=== PATIENT | male | born 1985 | race Caucasian/White ===

== ENCOUNTER 2017-01-27 21:13 | Emergency (ER) | payer OTHER ==
[~2017-01-27] VITALS: Ht 175.3 cm; Wt 113.6 kg
[2017-01-27 21:20] VITALS: BP 130/91; PULSE 73; RESP 16; O2SAT 98
--- NOTE | 2017-01-27 22:00 | DRSVH ---
PROCEDURE: X-RAY FINGERS, TWO VIEWS INDICATIONS: smashed finger TECHNIQUE: AP hand, 2 views of the right finger(s) acquired. COMPARISON: None. FINDINGS: Bones: Cortical fracture of the distal tuft of the middle finger Soft tissues: No suspicious soft tissue calcifications. IMPRESSION: Middle finger distal tuft cortical fracture Dictated by: Gary Manley M.D. on 01/27/2017 at 21:57 Approved by: Gary Manley M.D. on 01/27/2017 at 21:58
[2017-01-27] MEDS ORDERED: CEPH-512 PO (22:18)
[2017-01-27] MEDS ORDERED: IBUP-1827 PO (22:19)
--- NOTE | 2017-01-27 22:20 | ED.REPORT ---
HPI-Extremity Problem Upper Date of Service January 27, 2017 ED Provider: Osmar Huizar MD A 31 year old male no pertinent medical history presents to the ED complaining of right third finger pain. The pt crushed his finger several days ago, resulting in a laceration at the tip of the finger. He has been cleaning the area with hydrogen peroxide but became concerned today when he noticed that the wound was draining fluid. Nursing Notes Stated Complaint: R/FINGER LACERATION Chief Complaint: Extremity Trauma Nursing Notes Reviewed: Yes Allergies: Coded Allergies: No Known Allergies (Unverified , 01/27/17) Scheduled Cephalexin (Keflex) 500 Mg Capsule 500 MG PO QID Scheduled PRN Ibuprofen (Ibuprofen) 600 Mg Tablet 600 MG PO QID PRN PRN For Pain General Time Seen by MD: 22:06 Chief Complaint Finger injury right 3 Hx Obtained From: Patient Arrived By: Walk-in Symptom Duration: Since onset Recent Healthcare: No recent doctor visit, No recent hospitalization Similar Sx Previous: No Past Medical History Past Medical History none reported Past Surgical History none reported Smoking History Unknown if Ever Smoker Ambulatory Status Independent Review of Systems Musculoskeletal: Reports: Extremity pain (right third finger) Skin: Denies Rash Complete sys rev & neg: except as marked. Respiratory: Denies: Non-productive cough, Shortness of breath Cardiovascular: Denies: Chest pain GI: Denies: Abdominal pain Physical Exam Initial Vital Signs Vital Signs (First) Date Time Temp Pulse Resp B/P Pulse Ox O2 Delivery O2 Flow Rate FiO2 01/27/17 21:20 37.2 73 16 130/91 98 Room Air Initial VS: Reviewed General/Constitutional: Awake, Alert Neck: Atraumatic, Supple, Full range of motion Respiratory / Chest: Atraumatic, No respiratory distress Cardiovascular: Heart rate NL Upper Extremity / MS: Full range of motion Wrist / Hand: Neurologic intact, Vascular intact linear split in the pad of the right third finger, delayed presentation local infection and drainage bruising of the nail, seems to be draining Skin: Warm, Dry Neurologic: Oriented X3, Speech NL, No motor deficits, No sensory deficits Head / Eyes: Atraumatic, Normocephalic, PERRL, EOMI ENT: Atraumatic, Airway patent, Mucous membranes moist Abdomen: Atraumatic Back: Atraumatic, Full range of motion Lower Extremity / Pelvis / MS: Atraumatic, Full range of motion Psychiatric: Affect NL, Mood NL Interpretation & Diagnostics Interpretation & Diagnostics: Finger X-Ray, Right: IMPRESSION: Middle finger distal tuft cortical fracture Dictated by: Gary Manley M.D. on 01/27/2017 at 21:57 Approved by: Gary Manley M.D. on 01/27/2017 at 21:58 Re-Eval/Medical Decision Med Decision/Clinical Course 31-year-old with delayed presentation with a crush laceration and tuft fracture. Dressing and stack splint ordered, but patient departed the department before that could be applied. Declined prescribed antibiotics and left. Source of Hx: Old records Re-Evaluation/Progress : Time of Eval: 22:11 Patient Status: Condition improved Re-Evaluation/Progress Note: Pt rechecked, who is comfortable. Radiology results, diagnosis and plan for discharge are discussed. The pt understands and agrees with the plan. All questions are addressed at this time. Counseled Regarding: Diagnosis, Lab results, Need for follow-up, When/why to return to ED Discharge & Departure Impression: Primary Impression: Crushing injury of distal finger Encounter type: initial encounter Qualified Code: S67.10XA - Crushing injury of unspecified finger(s), initial encounter Additional Impression: Open fracture of distal phalangeal tuft Disposition: Home Discharge Condition All VS Reviewed: Yes Condition: Improved Patient Instructions: Acute Wounds (ED) Additional Instructions: Apply bacitracin ointment three or four times daily with a fresh dressing each time, and then reapply the external splint to protect the finger. Keflex four times daily. Continue ibuprofen 600 mg four times daily as needed for pain. Follow-up with Dr. Fitzgerald next week. Watch for signs of infection, such as increasing redness, discharge of pus, or other symptoms of concern and return if needed prior to seeing Dr. Fitzgerald. Referrals: [facility] Scribe Attestation Portions of this note were transcribed by Kyle Waddell. I, Dr. Huizar personally performed the history, physical exam and medical decision-making; I reviewed and confirmed the accuracy of the information in the transcribed note. Signed by: aCrloz Montilla, 01/27/17 and 2233. copies to: [facility] Osmar Huizar MD January 27, 2017 22:20 KYLE WADDELL January 27, 2017 22:30
== END 2017-01-27 22:38 | disposition home or self-care (01) ==
LOC: SED 21:13
DX: S62.632B Displaced fracture of distal phalanx of right middle finger, initial encounter for open fracture (principal); S67.10XA Crushing injury of unspecified finger(s), initial encounter; X58.XXXA Exposure to other specified factors, initial encounter; Y93.89 Activity, other specified; Y92.9 Unspecified place or not applicable; Y99.8 Other external cause status

== ENCOUNTER 2017-02-02 16:14 | Emergency (ER) | payer OTHER ==
[~2017-02-02] VITALS: Ht 175.3 cm; Wt 90.9 kg
[~2017-02-02 16:14] MED LIST: CEPH-512 PO; IBUP-1827 PO
[2017-02-02 16:32] VITALS: BP 125/84; PULSE 60; RESP 16; O2SAT 98
--- NOTE | 2017-02-02 17:03 | ED.REPORT ---
HPI-Trauma Minor / Fall Date of Service February 02, 2017 ED Provider: Doc,Ed MD The patient is a 31 year old male who presents to the emergency department after he had a ground level fall at work that occurred prior to arrival. The patient missed his step and fell to the ground hitting the back of his head. He does not remember the event. At this time he complains of head pain, left thumb pain, and right elbow pain. He denies neck pain, chest pain, abdominal pain or vomiting. Nursing Notes Stated Complaint: HIT HEAD Chief Complaint: Head, Face, Neck Trauma Nursing Notes Reviewed: Yes Allergies: Coded Allergies: No Known Allergies (Unverified , 01/27/17) Scheduled Cephalexin (Keflex) 500 Mg Capsule 500 MG PO QID Scheduled PRN Ibuprofen (Ibuprofen) 600 Mg Tablet 600 MG PO QID PRN PRN For Pain General Time Seen by MD: 17:03 Chief Complaint Fall, Head injury, Loss of consciousness Hx Obtained From: Patient Arrived By: Walk-in Onset Occurred: 1 - 4 hours ago Symptom Duration: Since onset Caused by: Fall on ground Context: Occurred at: Workplace Location: Elbow right Hand left Head Quality: Painful Severity: Current: Mild Severity: Maximum: Moderate Recent Healthcare: No recent doctor visit, No recent hospitalization Similar Sx Previous: No Past Medical History Past Medical History none reported Past Surgical History none reported Family History Noncontributory Smoking History Current Every Day Smoker Social History Alcohol Use: In recovery Drug Use: In recovery Other Social History: Smokeless tobacco, Local resident Ambulatory Status Independent Review of Systems Musculoskeletal: Reports: Extremity pain, Denies: Neck pain Neurologic: Reports: Change LOC, Headache Complete sys rev & neg: except as marked. Cardiovascular: Denies: Chest pain GI: Denies: Abdominal pain, Vomiting Physical Exam Initial Vital Signs Vital Signs (First) Date Time Temp Pulse Resp B/P Pulse Ox O2 Delivery O2 Flow Rate FiO2 02/02/17 16:32 37.0 60 16 125/84 98 Room Air Initial VS: Reviewed Respiratory: Breath sounds normal, Clear to auscultation, No respiratory distress Cardiovascular: Regular rate & rhythm, Heart sounds normal, Intact distal pulses Abdomen / GI: Soft, Non-tender, No guarding, No rebound, No distention Extremities: Vascular intact, Neuro intact Skin: Warm, Dry, No cyanosis Neurologic: Alert, Oriented, Nonfocal Psychiatric: Mood/affect normal, Behavior normal, Normal thought content General/Constitutional: Awake, Alert, Cooperative Neck: Atraumatic, Supple, Full range of motion, No swelling, Non-tender, No midline vertebral tend Head / Eyes: Normocephalic, PERRL, EOMI 3 cm horizontal laceration just to the right of midline on the top of the occiput. ENT: Airway patent, Mucous membranes moist, Tympanic membs NL, Ext aud canal NL , Mastoid area NL Trauma - ENT Specific: Negative: Hemotympanum L, Hemotympanum R Asymmetric mastoid swelling, bruising, and tenderness. Upper Extremity / MS: Neurologic intact, Vascular intact 1 cm puncture wound to his right elbow. Interpretation & Diagnostics Lab Results Interpretation Test 02/02/17 17:38 Hold Urine Received (Received) CT Head Interpretation IMPRESSION: No acute intracranial abnormality is seen. There is suggestion of a small amount of subcutaneous soft tissue swelling in the left occipital area on series 2 image 11. Dictated by: Ham March M.D. on 02/02/2017 at 17:28 Study: Head CT no contrast Interpretation / Wet Read by: Interpret - Radiologist Procedures Laceration Management Laceration Management: 5 jasmin placed Time: 18:00 Procedure Performed by: ED physician Consent / Setup / Site Prep: Consent from patient Wound Length: 3 cm Closure Layers: 1 Re-Eval/Medical Decision Med Decision/Clinical Course Loss of consciousness and occipital tenderness concern for acute intracranial hemorrhage or skull fracture. He did have a superficial laceration which was stapled with a total of 5 jasmin. He also had a forearm puncture wound that was irrigated but not stapled. Return in follow-up precautions given. Source of Hx: Old records Counseled Regarding: Diagnosis, Lab results, Need for follow-up, When/why to return to ED Discharge & Departure Impression: Primary Impression: Head injury Encounter type: initial encounter Qualified Code: S09.90XA - Unspecified injury of head, initial encounter Additional Impressions: Scalp laceration Encounter type: initial encounter Qualified Code: S01.01XA - Laceration without foreign body of scalp, initial encounter Pain of left thumb Puncture wound of upper extremity Encounter type: initial encounter Laterality: right Qualified Code: S41.131A - Puncture wound without foreign body of right upper arm, initial encounter Fall Encounter type: initial encounter Qualified Code: W19.XXXA - Unspecified fall, initial encounter Disposition: Home Discharge Condition All VS Reviewed: Yes Condition: Stable Patient Instructions: Head Injury (ED) Additional Instructions: Thank you for entrusting us with your care today. Your head CT today is reassuring. There is no findings of an intracranial bleed or skull fractures. You will need to have the sutures removed in 5 days. You did receive one Vicodin while in the ER. Return to the emergency department for increased pain, vomiting, visual changes , or any other new or concerning symptoms. Referrals: Stuart Fitzgerald MD (PCP) Scribe Attestation Portions of this note were transcribed by Rosy Chan. I, Dr. Dias personally performed the history, physical exam and medical decision-making; I reviewed and confirmed the accuracy of the information in the transcribed note. Signed by: Carloz Yee, 02/02/2017 at 1801. Mario Dias DO February 02, 2017 17:03 Rosy Chan February 02, 2017 17:13
[2017-02-02] MEDS ORDERED: HYDROcodone-APAP 5-325 mg Tablet PO ONE (17:10)
--- NOTE | 2017-02-02 17:30 | DRSVH ---
PROCEDURE: CT BRAIN WITHOUT CONTRAST ([id number]) INDICATIONS: head injury TECHNIQUE: Noncontrast 4.5 mm thick angled axial sections acquired from the foramen magnum to the vertex, with c oronal reformats. COMPARISON: None. FINDINGS: Image quality: Excellent. CSF spaces: Basal cisterns are patent. No extra-axial fluid collections. Ventricles are normal in size and shape. Brain: No midline shift. No intracranial masses or hemorrhage. Higgins-white matter interface is norm al. Skull and face: Calvarium and visualized facial bones are intact, without suspicious lesions. Sinuses: Visualized sinuses and mastoids are clear. IMPRESSION: No acute intracranial abnormality is seen. There is suggestion of a small amount of subcu taneous soft tissue swelling in the left occipital area on series 2 image 11. Dictated by: Ham March M.D. on 02/02/2017 at 17:28 Approved by: Ham March M.D. on 02/02/2017 at 17:29
[2017-02-02 18:19] VITALS: BP 126/62; PULSE 71; RESP 17; O2SAT 100
== END 2017-02-02 18:20 | disposition home or self-care (01) ==
LOC: SED 16:14
DX: S01.01XA Laceration without foreign body of scalp, initial encounter (principal); S06.0X9A Concussion with loss of consciousness of unspecified duration, initial encounter; S00.03XA Contusion of scalp, initial encounter; S41.131A Puncture wound without foreign body of right upper arm, initial encounter; F17.200 Nicotine dependence, unspecified, uncomplicated; W10.9XXA Fall (on) (from) unspecified stairs and steps, initial encounter; Y93.89 Activity, other specified; Y99.0 Civilian activity done for income or pay; Y92.69 Other specified industrial and construction area as the place of occurrence of the external cause; Z79.1 Long term (current) use of non-steroidal anti-inflammatories (NSAID); Z79.2 Long term (current) use of antibiotics